=== PATIENT | female | born 1980 | race Two or more races ===

== ENCOUNTER 2016-11-03 22:20 | Emergency (ER) | payer SELFPAY ==
--- NOTE | ~2016-11-03 | ER ---
PATIENT'S NAME: LINDA BRYANT [facility] AGE: 36 Y [address] ROOM: [place] [address] LOCATION: [facility] ADMIT DATE: 11/03/2016 ER/Outpatient Report DISCHARGE DATE: 11/04/2016 FAMILY PHYSICIAN: Aaron Walden MD ATTENDING PHYSICIAN: Higinio Villalobos TIME OF PATIENT ARRIVAL: 2220 hours. TIME OF PATIENT EVALUATION: 2230 hours. CHIEF COMPLAINT: Migraine headache. HISTORY OF PRESENT ILLNESS: This is a 36-year-old, female who presents to the ER, who states she has a migraine headache. The patient states she has a history of migraine headaches and is similar to her previous headaches and located to the top of her head. It makes her feel photophobic and she has had nausea as well. The patient states that she has been seeing Dr. Aaron Walden, and he started her on some depression medication as well as Topamax and Flexeril. She states she also received an injection in the office yesterday. She states that her headache has come back. She denies any recent illness. No fever or chills. No other problems at this time. ALLERGIES: NO KNOWN ALLERGIES. MEDICATIONS: Please see medication list in nurse's notes. PAST MEDICAL HISTORY: Migraines. PAST SURGICAL HISTORY: Past Surgeries: None. SOCIAL HISTORY: Denies smoking or drug use. REVIEW OF SYSTEMS: A 10-point review of systems was completed and was negative with the exception of those discussed in the HPI. PATIENT'S NAME: LINDA BRYANT [facility] AGE: 36 Y [address] ROOM: [place] [address] LOCATION: ED ADMIT DATE: 11/03/2016 ER/Outpatient Report DISCHARGE DATE: 11/04/2016 FAMILY PHYSICIAN: Aaron Walden MD ATTENDING PHYSICIAN: Higinio Villalobos PHYSICAL EXAMINATION: VITAL SIGNS: Weight 83.6 kg taken, blood pressure is 149/85, pulse 79, respirations 16, temperature 98.3 degrees tympanically, and saturations 98% on room air. Tammy Coma score is 15. GENERAL: Alert, calm, well-developed female, in mild distress. HEENT: Head; normocephalic. Eyes; pupils are equal and reactive to light. Ears; TMs display good light reflexes bilaterally. Auditory canals clear. Nose; turbinates pink with no drainage. Throat; no exudates or erythema, does display moist mucous membranes. NECK: Supple. No lymphadenopathy. She has no nuchal rigidity. LUNGS: Clear to auscultation bilaterally. No wheezes or crackles. Normal respiratory effort. HEART: Regular rate and rhythm. No lifts, thrills, or murmurs. EXTREMITIES: No clubbing or cyanosis. She has full range of motion of all limbs. LABORATORY DATA AND IMAGING STUDIES: Labs and X-rays: None were done. IMPRESSION: Migraine headache. ASSESSMENT AND PLAN: I did review the patient's chart. I did give the patient a liter of IV fluids along with 10 mg of Compazine and 50 mg of Benadryl. She states that this did improve her headache. We will dismiss her to home. I am going to have her follow up with Dr. Aaron Walden in the next 1 to 2 days as well. The patient understands and agrees with care. CARLOTTA ZIMMERMAN PA-C FOR MD [facility] SCOTT/kathy /[id number] d: t: 11/07/162042, OUTPATIENT REPORT
== END 2016-11-04 00:06 | disposition disaster alternative care site (69) ==
LOC: GMED 22:20
DX: G43.909 Migraine, unspecified, not intractable, without status migrainosus (principal)
CPT/HCPCS: J0780; J1200; J7030

== ENCOUNTER 2017-04-13 14:23 | Emergency (ER) | payer SELFPAY ==
--- NOTE | ~2017-04-13 | ER ---
PATIENT'S NAME: CORY CABELLOLuis [facility] AGE: 37 Y [address] ROOM: [place] [address] LOCATION: ED ADMIT DATE: 04/13/2017 ER/Outpatient Report DISCHARGE DATE: 04/13/2017 FAMILY PHYSICIAN: Aaron Walden MD ATTENDING PHYSICIAN: Corey Appiah CHIEF COMPLAINT: Headache with left-sided heaviness. HISTORY OF PRESENT ILLNESS: Information is obtained from the patient via [email or web address] sound effects supervisor. The patient states she has had 2 weeks worth of strong headaches primarily on the left side. She has also had some dizziness as well as a sensation of anxiety and desperation. She states her left arm and left chest feel heavy; that, however, has started today. She denies ever having this sensation before, however, she does admit that her headaches feel very much like the headache that she has had for the past 2 weeks. She also states she has been nauseated today. She does see Dr. Aaron Walden for headaches, she last saw him approximately one month ago. She did have a CAT scan of her head that was negative approximately 8 months ago. PAST MEDICAL HISTORY: Negative other than for headaches. ALLERGIES: NONE. HOME MEDICATIONS: None. SOCIAL HISTORY: She does housecleaning for work. She does not smoke. She does not drink. She does not use any illicit drugs. REVIEW OF SYSTEMS: GENERAL: The patient admits to 10-pound weight loss in the past 2 weeks due to lack of appetite and some nausea there. She denies any fevers, chills, or sweats. HEENT: Headache is primarily on the left side. She denies any visual changes. She denies any recent upper respiratory illnesses. CARDIOVASCULAR: No complaints of chest pain. No palpitations. She does have heaviness on the left side of her body, not just in her chest. RESPIRATORY: She admits to feeling some shortness of breath. She denies any cough. GI: No vomiting. She has felt nauseated with this headache for the past PATIENT'S NAME: CORY CABELLOLuis [facility] AGE: 37 Y [address] ROOM: [place] [address] LOCATION: ED ADMIT DATE: 04/13/2017 ER/Outpatient Report DISCHARGE DATE: 04/13/2017 FAMILY PHYSICIAN: Aaron Walden MD ATTENDING PHYSICIAN: Corey Appiah couple of weeks intermittently. No diarrhea. No constipation. No abdominal pain. : No urinary symptoms. NEURO: No confusion. No weakness. She describes dizziness and feeling weird when she is walking. Her balance has been good. MUSCULOSKELETAL: No complaints. She has not noticed any weakness. HEMATOLOGY: No history of bleeding disorder. SKIN: No new rashes or lesions. ENDOCRINE: No complaints. PSYCH: She has a history of anxiety and depression. She did take an antidepressant, however, she felt better when the prescription ran out and did not refill it. This was approximately 1 year ago. PHYSICAL EXAMINATION: VITAL SIGNS: Pulse 67, respiratory rate 20, blood pressure 149/98, and oxygen saturation 98% on room air. GENERAL APPEARANCE: The patient is alert, oriented, pink, warm, and dry. In no acute distress. HEENT: Head: Normocephalic. Eyes: PERRL. EOMs intact. No nystagmus. Ears: TMs are pearly smith. Light reflex and landmarks easily visible. Nose: Turbinates are pink. No rhinorrhea. Throat: Pharynx is without edema, erythema, or exudate. Uvula is midline. Mucous membranes are moist. NECK: Supple. No lymphadenopathy. LUNGS: Clear to anterior and posterior auscultation. No adventitious lung sounds. Respiratory effort is easy and nonlabored. HEART: Heart rate is regular. Normal S1 and S2. No lifts, thrills, or murmurs. ABDOMEN: Soft. Nontender. Bowel sounds are present in all 4 quadrants. EXTREMITIES: Capillary refill less than 3 seconds. Peripheral pulses 2+. No peripheral edema. Full range of motion and strength. NEURO: Cranial nerves II through XII are intact. Her motor strength is 5/5 in the upper and lower extremities. Her gait is steady. There is no nuchal rigidity. Facial expressions are symmetrical. Tongue protrudes midline. Speech is clear. LABORATORY DATA AND X-RAYS: EKG shows normal sinus rhythm, no ST elevation, no ST depression. Normal EKG. White count is 10.0, hemoglobin is 14.7, hematocrit is 41.5, and platelets 326. Sodium 141, potassium 3.3, glucose 127, BUN 12, and creatinine 0.7. Liver functions within normal limits. CK-MB 0.8. Troponin I less than 0.40. Free T4 is 1.0. TSH 0.632. IMPRESSION: Anxiety with headache. PATIENT'S NAME: WESLEY CABELLO [facility] AGE: 37 Y [address] ROOM: [place] [address] LOCATION: [facility] ADMIT DATE: 04/13/2017 ER/Outpatient Report DISCHARGE DATE: 04/13/2017 FAMILY PHYSICIAN: Aaron Walden MD ATTENDING PHYSICIAN: Corey Appiah EMERGENCY DEPARTMENT COURSE: The patient was given Zofran and ibuprofen. Test results were reviewed with the patient. She is to follow up with her primary care provider in 2 to 3 days if she is not feeling better or sooner if she is worse. I recommend that she will follow up as soon as possible for an appointment to discuss getting back on medication for her anxiety and depression. She does note she can return to the emergency room if her symptoms worsen. Discharge instructions were gone over with the patient via [email or web address] sound effects supervisor. JORGE CROUCH APRN FOR COREY APPIAH MD DP/modl /[id number] d: 04/13/17 2349 t: 04/24/17 1629, OUTPATIENT REPORT
[2017-04-13 15:18] LABS: BASOPHIL % 0.4 %; EOSINOPHIL # 0.1 K/uL (0.0-0.5); EOSINOPHIL % 0.6 %; HEMATOCRIT 41.5 % (33.0-46.0); HEMOGLOBIN 14.7 g/dL (11.0-15.0); IMMATURE GRANULOCYTE % 0.3 %; LYMPHOCYTE # 1.2 K/uL (0.8-4.0); LYMPHOCYTE % 12.3 %; MCH 32.7 pg (27.0-34.0); MCHC 35.4 gm/dL (32.0-36.5); MCV 92.4 fl (83.0-98.0); MONOCYTE # 0.4 K/uL (0.0-1.0); MONOCYTE % 4.4 %; MPV 9.1 fl (9.4-12.4); NEUTROPHIL # (ANC) 8.2 K/uL (1.8-7.8); NRBC % 0 /100WBC (0-0.00); PLATELET COUNT 326 K/uL (150-450); RBC 4.49 M/uL (3.50-5.50); RDW-CV 12.1 % (11.9-14.6)
[2017-04-13 15:37] LABS: ALBUMIN 3.5 gm/dL (3.5-5.0); ALK PHOS 64 IU/L (33-138); ALT 19 IU/L (12-78); ANION GAP 13.3 (10.0-19.0); AST 11 IU/L (10-40); BLOOD UREA NITROGEN 12 mg/dL (6-24); CALCIUM 8.6 mg/dL (8.5-10.5); CHLORIDE 110 mMol/L (96-110); CO2 21 mMol/L (22-32); CREATININE 0.7 mg/dL (0.5-1.1); POTASSIUM 3.3 mMol/L (3.7-5.1); SODIUM 141 mMol/L (135-145); TOTAL BILIRUBIN 0.2 mg/dL (0.0-1.5); TOTAL PROTEIN 7.7 g/dL (6.0-8.4)
== END 2017-04-13 16:03 | disposition disaster alternative care site (69) ==
LOC: GMED 14:23
PROVIDERS: Nurse Practitioner
DX: F41.9 Anxiety disorder, unspecified (principal); R51 Headache